=== PATIENT | female | born 1950 | race Caucasian/White ===

== ENCOUNTER 2021-06-05 13:43 | Emergency (ER) | payer MEDICARE, OTHER ==
[2021-06-05] MEDS ORDERED: Sodium Chloride 0.9% 10 ML Syringe FLUSH PRN (14:14)
[2021-06-05] MEDS ORDERED: Ketorolac 30 MG/ML SDV IVPUSH STA (14:16)
[2021-06-05] MEDS ORDERED: Sodium Chloride 0.9% 1,000 ML IV SCH (14:30)
[2021-06-05] MEDS ORDERED: Iopamidol 755 Mg/ML 100 ML Bottle IV ONE (14:39)
== END 2021-06-05 16:30 | disposition home or self-care (01) ==
LOC: FB.ED 13:43
DX: N39.0 Urinary tract infection, site not specified (principal); K76.89 Other specified diseases of liver; Z88.0 Allergy status to penicillin
CPT/HCPCS: 36415; 74178; 80053; 81001; 82150; 83690; 85025; 87086; 96374; 99284; J1885; J7030; Q9967

== ENCOUNTER 2021-06-06 04:53 | Emergency (ER) | payer MEDICARE, OTHER ==
[2021-06-06] MEDS ORDERED: Acetaminophen/HYDROcodone 325-5 MG Tab PO ONE (04:54)
[2021-06-06] MEDS ORDERED: Ketorolac 30 MG/ML SDV IM ONE (05:03)
== END 2021-06-06 05:20 | disposition home or self-care (01) ==
LOC: FB.ED 04:53
DX: R52 Pain, unspecified (principal)
CPT/HCPCS: 96372; 99283; A9270-GY; J1885

== ENCOUNTER 2021-07-16 08:12 | Day surgery (SDC) | payer MEDICARE, OTHER ==
[2021-07-16] MEDS ORDERED: Propofol 200 MG/20 ML SDV IV ONE (08:13)
[2021-07-16] MEDS ORDERED: Sodium Chloride 0.9% 10 ML Syringe FLUSH PRN (08:15)
[2021-07-16] MEDS ORDERED: Lactated Ringers 1,000 ML IV SCH (08:15)
== END 2021-07-16 12:23 | disposition home or self-care (01) ==
LOC: FB.SDS 08:12
PROVIDERS: ATTEND Surgery
DX: K57.30 Diverticulosis of large intestine without perforation or abscess without bleeding (principal); Z88.0 Allergy status to penicillin; Z91.018 Allergy to other foods; Z98.890 Other specified postprocedural states; Z90.11 Acquired absence of right breast and nipple; Z79.899 Other long term (current) drug therapy; Z80.0 Family history of malignant neoplasm of digestive organs
CPT/HCPCS: 00812-QZ; J2704; J7120